=== PATIENT | male | born 1990 | race Caucasian/White ===

== ENCOUNTER 2024-04-08 23:02 | Emergency (ER) | payer MEDICAID, OTHER ==
[~2024-04-08] VITALS: Ht 172.7 cm; Wt 96.0 kg
[2024-04-08 23:05] VITALS: TEMP 99.5; O2SAT 95
[2024-04-08] MEDS: SODIUM CHLORIDE 0.9% 1,000 ML IV ONE (23:38)
[2024-04-09] MEDS ORDERED: HALOPERIDOL LACTATE 5MG/ML VIAL IM ONE (01:45)
[2024-04-09 05:00] VITALS: BP 126/72; PULSE 116; RESP 18; O2SAT 100
[2024-04-09] MEDS: KETAMINE HCL 50 MG/ML 10ML IV ONE (05:14)
== END 2024-04-09 06:30 | disposition home or self-care (01) ==
LOC: ER 23:16
DX: S82.892A Other fracture of left lower leg, initial encounter for closed fracture (principal); I10 Essential (primary) hypertension; W18.39XA Other fall on same level, initial encounter; Y93.89 Activity, other specified; Y92.89 Other specified places as the place of occurrence of the external cause; Y99.8 Other external cause status
CPT/HCPCS: 73590; 73610 ×2; 73630; 27810; 96360; 96361; 99291; J7030; J1630; Z7610 ×2